=== PATIENT | female | born 1955 | race Caucasian/White ===

== ENCOUNTER 2020-10-28 12:19 | Emergency (ER) | payer OTHER ==
[2020-10-28 13:49] LABS: HEMOGLOBIN 14.2 gm/dl (12.3-15.3); RED BLOOD COUNT 5.3 M/UL (4.00-5.10)
[2020-10-28 14:54] LABS: BUN/CREATININE RATIO 19 (0-10)
[2020-10-28] MEDS ORDERED: ZOFRAN ODT 4 MG4 MG PO (18:50)
== END 2020-10-28 19:18 | disposition home or self-care (01) ==
LOC: ER1 12:19
PROVIDERS: Emergency Medicine
DX: R42 Dizziness and giddiness (principal); I10 Essential (primary) hypertension; E11.9 Type 2 diabetes mellitus without complications
CPT/HCPCS: 70450; 70496; 80053; 82550; 82553; 84484; 85025; 85379; 93005; 99284; Q9963

== ENCOUNTER → 2021-09-04 | Day surgery (SDC) | payer OTHER ==
[~2021-09-04] MED LIST: CALAN 80MG TABL80 MG PO; ERYTHROMYCIN OP1 GM OP; LATANOPROST 0.7.5 ML OP; LOVASTATIN20 MG PO; LUMIFY2.5 ML OP; METFORMIN HCL500 MG PO; VITAMIN D21250 MCG PO; ZOFRAN ODT 4 MG4 MG PO
== END | disposition home or self-care (01) ==
LOC: OR 06:04
DX: Z12.11 Encounter for screening for malignant neoplasm of colon (principal); K57.30 Diverticulosis of large intestine without perforation or abscess without bleeding; I10 Essential (primary) hypertension; E11.9 Type 2 diabetes mellitus without complications; E78.5 Hyperlipidemia, unspecified; Z86.010 Personal history of colon polyps; Z79.84 Long term (current) use of oral hypoglycemic drugs; Z79.899 Other long term (current) drug therapy; Z20.822 Contact with and (suspected) exposure to COVID-19
CPT/HCPCS: 82962; J2704; J7030